=== PATIENT | male | born 1970 | race Two or more races ===

== ENCOUNTER → 2017-12-08 | Outpatient (CLI) | payer OTHER | END | disposition home or self-care (01) | LOC: CDC 14:46 | DX: Z01.810 Encounter for preprocedural cardiovascular examination (principal); M25.512 Pain in left shoulder; S43.432D Superior glenoid labrum lesion of left shoulder, subsequent encounter; M75.42 Impingement syndrome of left shoulder; I45.10 Unspecified right bundle-branch block; R94.31 Abnormal electrocardiogram [ECG] [EKG] | CPT/HCPCS: 93000 ==